=== PATIENT | female | born 1965 | race Caucasian/White ===

== ENCOUNTER → 2021-07-29 | Outpatient (CLI) | payer BC | END | disposition home or self-care (01) | LOC: MAMMO 00:11 | PROVIDERS: ATTEND Nurse Practitioner Family | DX: Z12.31 Encounter for screening mammogram for malignant neoplasm of breast (principal) ==

== ENCOUNTER → 2022-11-08 | Outpatient (CLI) | payer BC | END | disposition home or self-care (01) | LOC: LAB 16:35 | PROVIDERS: ATTEND Nurse Practitioner | DX: R89.9 Unspecified abnormal finding in specimens from other organs, systems and tissues (principal) ==

== ENCOUNTER → 2024-02-20 | Outpatient (CLI) | payer BC | END | disposition home or self-care (01) | LOC: MAMMO 02:22 | PROVIDERS: ATTEND Nurse Practitioner Women's Health | DX: Z12.31 Encounter for screening mammogram for malignant neoplasm of breast (principal) ==

== ENCOUNTER → 2025-05-29 | Outpatient (CLI) | payer BC | END | disposition home or self-care (01) | LOC: RESCLI 09:48 → LAB 09:48 | PROVIDERS: ATTEND Student in an Organized Health Care Education/Training Program | DX: B34.9 Viral infection, unspecified (principal) ==

== ENCOUNTER → 2025-06-02 | Outpatient (CLI) | payer BC | END | disposition home or self-care (01) | LOC: MAMMO 05-27 14:30 | PROVIDERS: ATTEND Nurse Practitioner | DX: Z12.31 Encounter for screening mammogram for malignant neoplasm of breast (principal); R92.333 Mammographic heterogeneous density, bilateral breasts; R92.1 Mammographic calcification found on diagnostic imaging of breast ==